=== PATIENT | male | born 1990 | race African-American/Black ===

== ENCOUNTER 2019-07-14 10:49 | Emergency (ER) | payer MEDICAID ==
[~2019-07-14] VITALS: Ht 165.1 cm; Wt 65.0 kg
[2019-07-14 11:26] VITALS: BP 149/93
[2019-07-14 14:30] LABS: BASOPHILS % 0.3 % (0.0-2.0); EOSINOPHILS % 0.1 % (0.0-5.0); HEMATOCRIT. 39.7 % (42.0-52.0); HEMOGLOBIN. 13.7 g/dL (14.0-18.0); LYMPHOCYTES % 25.7 % (20.0-50.0); MEAN CORPUSCULAR HEMOGLOBIN 33.6 pg (28.0-32.0); MEAN CORPUSCULAR VOLUME 97.5 fL (80.0-94.0); MEAN PLATELET VOLUME 8.5 fl (7.4-10.4); MONOCYTES % 6.5 % (2.0-8.0); NEUTROPHILS % 67.4 % (40.0-76.0); PLATELET 245 x1000/uL (130-400); RED BLOOD CELL COUNT 4.07 mill/uL (4.7-6.1); RED CELL DISTRIBUTION WIDTH 12.2 % (11.6-14.6)
[2019-07-14 14:35] LABS: CHLORIDE 108 mEq/L (98-107)
[2019-07-14 14:39] LABS: ETHANOL BLOOD < 10 mg/dL
[2019-07-14 14:47] LABS: CLARITY URINE CLEAR (CLEAR); COLOR URINE YELLOW (YELLOW); KETONES URINE 1+ (NEGATIVE); LEUKOCYTE ESTERASE URINE NEGATIVE (NEGATIVE); NITRITE URINE NEGATIVE (NEGATIVE); OCCULT BLOOD URINE NEGATIVE (NEGATIVE); PROTEIN URINE NEGATIVE (NEGATIVE); SPECIFIC GRAVITY URINE 1.015 (1.005-1.030)
[2019-07-14 15:07] LABS: *AMPHETAMINES SCREEN URINE NEGATIVE (NEGATIVE); *BARBITURATES SCREEN URINE NEGATIVE (NEGATIVE); *BENZODIAZEPINES SCREEN URINE NEGATIVE (NEGATIVE); *COCAINE SCREEN URINE NEGATIVE (NEGATIVE); CANNABINOID URINE SCREEN NEGATIVE (NEGATIVE); METHADONE URINE SCREEN NEGATIVE (NEGATIVE); OPIATES URINE SCREEN NEGATIVE (NEGATIVE); PHENCYCLIDINE URINE SCREEN NEGATIVE (NEGATIVE)
== END 2019-07-14 20:15 | disposition left against medical advice (07) ==
LOC: ER 10:49
DX: F22 Delusional disorders (principal)
CPT/HCPCS: 36415; 80053; 80305; 80320; 81003; 81025; 85025; 99283; G0480

== ENCOUNTER 2019-07-14 20:22 | Emergency (ER) | payer MEDICAID, OTHER ==
[~2019-07-14] VITALS: Ht 165.1 cm; Wt 55.0 kg
[2019-07-14] MEDS ORDERED: ACETAMINOPHEN 325MG TABLET PO STA (22:11)
[2019-07-14] MEDS ORDERED: SODIUM CHLORIDE 0.9% 1000ML BAG (SEPSIS BOLUS) IV ONE (22:15)
[2019-07-14 23:33] LABS: CLARITY URINE CLEAR (CLEAR); COLOR URINE YELLOW (YELLOW); KETONES URINE TRACE (NEGATIVE); LEUKOCYTE ESTERASE URINE NEGATIVE (NEGATIVE); NITRITE URINE NEGATIVE (NEGATIVE); OCCULT BLOOD URINE NEGATIVE (NEGATIVE); PH URINE 6.5 (4.5-8.0); PROTEIN URINE NEGATIVE (NEGATIVE); SPECIFIC GRAVITY URINE 1.009 (1.005-1.030)
[2019-07-15 00:06] LABS: BASOPHILS % 0.4 % (0.0-2.0); EOSINOPHILS % 0.4 % (0.0-5.0); HEMATOCRIT. 40.4 % (42.0-52.0); HEMOGLOBIN. 13.3 g/dL (14.0-18.0); LYMPHOCYTES % 30.8 % (20.0-50.0); MEAN CORPUSCULAR HEMOGLOBIN 32.6 pg (28.0-32.0); MEAN CORPUSCULAR VOLUME 98.7 fL (80.0-94.0); MEAN PLATELET VOLUME 8.8 fl (7.4-10.4); MONOCYTES % 9.3 % (2.0-8.0); NEUTROPHILS % 59.1 % (40.0-76.0); PLATELET 242 x1000/uL (130-400); RED BLOOD CELL COUNT 4.09 mill/uL (4.7-6.1); RED CELL DISTRIBUTION WIDTH 12.3 % (11.6-14.6)
[2019-07-15 00:16] LABS: CHLORIDE 107 mEq/L (98-107)
[2019-07-15 00:23] LABS: ETHANOL BLOOD < 10 mg/dL
[2019-07-15 00:26] LABS: *AMPHETAMINES SCREEN URINE NEGATIVE (NEGATIVE); *BARBITURATES SCREEN URINE NEGATIVE (NEGATIVE); *BENZODIAZEPINES SCREEN URINE NEGATIVE (NEGATIVE)
[2019-07-15 00:27] LABS: *COCAINE SCREEN URINE NEGATIVE (NEGATIVE); CANNABINOID URINE SCREEN NEGATIVE (NEGATIVE); OPIATES URINE SCREEN NEGATIVE (NEGATIVE); PHENCYCLIDINE URINE SCREEN NEGATIVE (NEGATIVE)
[2019-07-15 00:43] LABS: METHADONE URINE SCREEN NEGATIVE (NEGATIVE)
[2019-07-15] MEDS ORDERED: SODIUM CHLORIDE 0.9% 1,000 ML IV NR (01:30)
[2019-07-15 04:27] VITALS: BP 110/64
[2019-07-16 09:09] LABS: ABSOLUTE LYMPHOCYTES 2.9 x10E3/uL (0.7-3.1); ABSOLUTE MONOCYTES 0.8 x10E3/uL (0.1-0.9); ABSOLUTE NEUTROPHILS 5.6 x10E3/uL (1.4-7.0); BASOPHILS 0 % (Not Estab.); HEMATOCRIT 40.8 % (37.5-51.0); HEMOGLOBIN 13.3 g/dL (13.0-17.7); IMMATURE GRANULOCYTES 0 % (Not Estab.); LYMPHOCYTES 31 % (Not Estab.); MEAN CORPUSCULAR HEMOGLOBIN 32.7 pg (26.6-33.0); MEAN CORPUSCULAR HGB CONC. 32.6 g/dL (31.5-35.7); MEAN CORPUSCULAR VOLUME 100 fL (79-97); MONOCYTES 9 % (Not Estab.); NEUTROPHILS 60 % (Not Estab.); PLATELETS 282 x10E3/uL (150-450); RBC 4.07 x10E6/uL (4.14-5.80); RED CELL DISTRIBUTION WIDTH 12.2 % (11.6-15.4); WBC 9.3 x10E3/uL (3.4-10.8)
[2019-07-16 12:21] LABS: % CD 3 POS. LYMPHOCYTES 89.5 % (57.5-86.2); % CD 4 POS. LYMPHOCYTES 39.1 % (30.8-58.5); % CD 8 POS. LYMPH 47.6 % (12.0-35.5); ABSOLUTE CD 3 2596 /uL (622-2402); ABSOLUTE CD 4 HELPER 1134 /uL (359-1519); ABSOLUTE CD 8 SUPPRESSOR 1380 /uL (109-897); CD4/CD8 RATIO 0.82 (0.92-3.72)
[2019-07-17 04:07] LABS: NEISSERIA GONORRHOEAE NAA Negative (Negative)
[2019-07-18 19:09] LABS: *HSV 1 DNA PCR Negative (Negative); *HSV 2 DNA PCR Negative (Negative)
[2019-07-21 17:11] LABS: *HIV-1 RNA BY PCR <20 copies/mL (.)
== END 2019-07-15 04:28 | disposition home or self-care (01) ==
LOC: ER 20:22 → CANBEDREQ 07-15 05:57
DX: F29 Unspecified psychosis not due to a substance or known physiological condition (principal); E86.0 Dehydration; E87.2 Acidosis; F12.10 Cannabis abuse, uncomplicated; Z59.0 Homelessness
CPT/HCPCS: 36415; 70450; 71045; 80053; 80305; 80320; 81003; 83605; 84145; 84484; 85025; 86359; 86360; 86592; 87040; 87070; 87086; 87430; 87491; 87529; 87536; 87591; 87804; 93005; 96360; 99284; J7030; G0480